=== PATIENT | female | born 2000 | race Caucasian/White ===

== ENCOUNTER 2022-04-15 22:29 | Emergency (ER) | payer MEDICAID ==
[~2022-04-15] VITALS: Ht 160 cm; Wt 59.0 kg
[2022-04-16 00:30] VITALS: BP 113/68
[2022-04-16] MEDS ORDERED: IBUPROFEN 600MG TABLET PO ONE (00:30)
[2022-04-16] MEDS ORDERED: LIDOCAINE HCL/PF 1% 10 MG/ML 5ML VIAL INFIL ONE (00:30)
[2022-04-16] MEDS ORDERED: BACITRACIN ZINC OINT UDPKT TOP ONE (00:30)
[2022-04-16] MEDS ORDERED: TETANUS, DIPHTHERIA, PERTUSSIS VAC/PF 0.5ML (>10YR OLD) IM ONE (00:30)
[2022-04-16] MEDS ORDERED: NEOM28.37 TP (02:25)
[2022-04-16] MEDS ORDERED: IBUP-2029 MT (02:25)
== END 2022-04-16 00:23 | disposition home or self-care (01) ==
LOC: ER 22:29
DX: S61.306A Unspecified open wound of right little finger with damage to nail, initial encounter (principal); W22.8XXA Striking against or struck by other objects, initial encounter; Y93.E9 Activity, other interior property and clothing maintenance; Y92.018 Other place in single-family (private) house as the place of occurrence of the external cause
CPT/HCPCS: 11730; 81025; 90471; 90715; 99284; J3490